=== PATIENT | female | born 1960 | race Caucasian/White ===

== ENCOUNTER 2020-04-25 08:18 | Outpatient (CLI) | payer BC ==
--- NOTE | 2020-04-25 09:05 | BD ---
EXAM: Bone densitometry using DEXA HISTORY: 60 yo female. Screening for postmenopausal osteoporosis FINDINGS: L1--bone mineral density 0.846 g/sq cm; T score -1.3 ; Z score 0.1 L2--bone mineral density 0.80 0 g/sq cm; T score -1.3 ; Z score 0.2 L3--bone mineral density 0.828 g/sq cm; T score -2.3 ; Z score -0.7 L4--bone mineral density 0.873 g/sq cm; T score -1.7 ; Z score 0.0 Total L1-L4--bone mineral density 0.858 g/sq cm; T score -1.7 ; Z score -0.2 Left femoral neck--bone mineral density0.675; T score -1.6 ; Z score -0.2 Total proximal left femur--bone mineral density 0.960; T score 0.1 ; Z score 1.2 The 10 year fracture risk for a major osteoporotic fracture is 17% and for a hip fracture is 0.8%. IMPRESSION: Osteopenia
== END 2020-04-25 08:19 | disposition home or self-care (01) ==
LOC: BICMAMMO 08:18
PROVIDERS: ATTEND Physician Assistant
DX: Z13.820 Encounter for screening for osteoporosis (principal); M85.89 Other specified disorders of bone density and structure, multiple sites
CPT/HCPCS: 77080